=== PATIENT | male | born 1980 | race Caucasian/White ===

== ENCOUNTER 2019-11-25 06:45 | Emergency (ER) | payer BC, SELFPAY ==
[2019-11-25] MEDS ORDERED: Lidocaine 1% PF 5 ML VIAL ONE (07:34)
[2019-11-25] MEDS ORDERED: Lidocaine 1% w/Epinephrine 1:100K 30 ML VIAL ONE (07:35)
[2019-11-25] MEDS ORDERED: Sulfameth/Trimethoprim DS 800-160mg TAB ONE (08:43)
== END 2019-11-25 08:48 | disposition home or self-care (01) ==
LOC: BURERS 06:45
DX: L02.31 Cutaneous abscess of buttock (principal)
CPT/HCPCS: 10060; J2001

== ENCOUNTER 2020-09-28 22:55 | Emergency (ER) | payer SELFPAY ==
[2020-09-29] MEDS ORDERED: Bacitracin 1 PK ONE (00:09)
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
== END 2020-09-29 00:06 | disposition home or self-care (01) ==
LOC: BURERS 22:55
DX: S01.81XA Laceration without foreign body of other part of head, initial encounter (principal); S60.221A Contusion of right hand, initial encounter; H11.32 Conjunctival hemorrhage, left eye; Y04.0XXA Assault by unarmed brawl or fight, initial encounter
CPT/HCPCS: 70450; 70486